=== PATIENT | female | born 1955 | race American Indian/Alaskan Native ===

== ENCOUNTER 2022-04-09 11:29 | Emergency (ER) | payer BC, MEDICARE ==
[2022-04-09 11:58] VITALS: BP 145/85
[2022-04-09] MEDS ORDERED: ACETAMINOPHEN 325 MG TAB PO ONE (12:09)
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
== END 2022-04-09 22:17 | disposition home or self-care (01) ==
LOC: ED 11:29
DX: R51.9 Headache, unspecified (principal); V89.2XXA Person injured in unspecified motor-vehicle accident, traffic, initial encounter; Y93.89 Activity, other specified; Y92.89 Other specified places as the place of occurrence of the external cause; Y99.8 Other external cause status
CPT/HCPCS: 70450; 99283